=== PATIENT | female | born 1945 | race Caucasian/White ===

== ENCOUNTER 2017-07-05 05:25 | Day surgery (SDC) | payer MEDICARE, MEDICAID ==
--- NOTE | 2017-07-04 14:02 | History & Physical ---
ADMIT DATE: CHIEF COMPLAINT: Medical evaluation and clearance on Podiatry patient. HISTORY OF PRESENT ILLNESS: This is a 69-year-old female with history of hypertension, not on medication, hypothyroidism and was sent by Dr. Juarez for medical clearance. The patient denies any fever, chills, ____ or chest pain. The patient is able to ambulate a couple blocks without any cardiac or pulmonary issues, only limited by pain in the left foot. PAST MEDICAL HISTORY: As mentioned in history of present illness. PAST SURGICAL HISTORY: Status post cyst resection in the lumbar area, x 1, left breast lumpectomy, bilateral foot surgery x 2 on both sides. ALLERGIES: PENICILLIN. MEDICATIONS: Aspirin, Synthroid. FAMILY HISTORY: Denies diabetes or coronary artery disease in the family. SOCIAL HISTORY: Quit smoking and drinking 20 years ago. The patient did cocaine when she was younger. 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 REVIEW OF SYSTEMS: GENERAL: The patient denies increased general symptoms. HEENT: No blurred vision. NECK: No neck pain. LUNGS: COPD or asthma. The patient was given an inhaler in the past, but she does not use it. HEART: The patient with previous hypertension, but not on any medication. It is controlled. The patient follows with Dr. Murcia in [place]. ABDOMEN: No nausea, vomiting, or pain. GENITOURINARY: The patient denies increased frequency or dysuria. NEUROLOGIC: No headache, seizure or syncope. PSYCHIATRIC: Stable. EXTREMITIES: As mentioned above. PHYSICAL EXAMINATION: VITAL SIGNS: Blood pressure 126/80, respirations 18, pulse 80, temperature 98.0. GENERAL: Well-developed elderly female. The patient was seen with her daughter in the room. HEENT: Normocephalic, atraumatic. NECK: Supple. No mass. LUNGS: Equal breath sounds, otherwise clear to auscultation. HEART: Regular rhythm with a faint systolic ejection murmur. ABDOMEN: Soft, globular. EXTREMITIES: Positive excoriations. NEUROLOGIC: Limited, moving all 4 extremities. Gait is within normal range. ASSESSMENT AND PLAN: 1. Hypothyroidism, 2. Hypertension, diet-controlled. 3. History of heart murmur. 4. Left foot pain. We will review the patient's laboratory CBC, Chem-20, PT, PTT. The patient is asymptomatic as far as pulmonary or cardiac palmer. This should place the patient on low cardiac risk for any intraoperative complications. The patient was cleared here in the clinic back in 2014 without any adverse event during that time. Once again, thank you, ____ and Dr. Juarez for allowing me to participate in this patient's case. JOB# [id number]
[2017-07-05 06:17] VITALS: BP 111/69
[2017-07-05] MEDS ORDERED: Dexamethasone Sodium Phos 4 mg/mL Vial ONE (06:57)
[2017-07-05] MEDS ORDERED: Bupivacaine 0.25% 10 mL Vial ONE (06:58)
[2017-07-05] MEDS ORDERED: Propofol **SURGERY USE ONLY** 20 ML IV ONE (07:15)
[2017-07-05] MEDS ORDERED: Midazolam 1mg/ml 2 ml vial IV ONE ×3 (07:15→07:17)
[2017-07-05] MEDS ORDERED: Albumin 25% 12.5gm/50mL 12.5 GM/50 ML BTL IV ONE (07:17)
--- NOTE | 2017-07-05 07:20 | Diagnostic Imaging Report ---
Portable chest x-ray HISTORY: Shortness of breath Allowing for portable technique in a poor inspiration, the heart size appears to be within normal limits. No focal pulmonary processes. No hilar or mediastinal abnormalities. Degenerative changes seen to the spine. IMPRESSION: 1. No acute abnormalities
[2017-07-05 07:28] LABS: PROTHROMBIN TIME (TEST) 10.4 SECONDS (9.5-11.5)
--- NOTE | 2017-07-10 13:16 | Pathology Report ---
[id number] Collection date: 07/05/2017 Surgeon: Dr. Iris Juarez Specimen Description: Left 5th metatarsal bone fracture Gross Description: Received in formalin is a 1.5 x 1.0 x 0.7 cm portion of leonard-white osteocartilaginous tissue with a small amount of attached fibroconnective tissue. The entire specimen is decalcified after achieving adequate fixation, and shows focal areas of bony disruption. [employer] sections from the disrupted area is submitted in one cassette. Microscopic Description: The histologic sections show a portion of benign osteocartilaginous tissue with focal fragmentation of the bony structure, consistent with fracture. Diagnosis: Consistent with fracture, left 5th metatarsal bone. Comment: There is no evidence for malignancy. [facility]# [id number]
== END 2017-07-05 11:50 | disposition home or self-care (01) ==
LOC: MSII 05:25
PROVIDERS: ATTEND Podiatrist Foot & Ankle Surgery
DX: S92.352A Displaced fracture of fifth metatarsal bone, left foot, initial encounter for closed fracture (principal); Z88.0 Allergy status to penicillin; Z79.82 Long term (current) use of aspirin; I10 Essential (primary) hypertension; X58.XXXA Exposure to other specified factors, initial encounter; Y93.89 Activity, other specified; Y92.89 Other specified places as the place of occurrence of the external cause; Y99.8 Other external cause status
CPT/HCPCS: 36415-UA; 71045-TC; 85610-TC; 88304-TC; 93005; J0690; J1100; J1885; J2001; J2250; J2704; J3490; P9047; V2790; X5716; Z7610